=== PATIENT | male | born 1990 | race Caucasian/White ===

== ENCOUNTER 2021-09-01 08:24 | Outpatient (CLI) | payer MEDICAID, SELFPAY ==
--- NOTE | 2021-09-01 08:15 | RT.EKG_ITS ---
APPROVED REPORT Exam: Resting ECG Reason for Exam: high risk med Patient Location: O HR:109 bpm ECG Measurements Heart Rate 109 AXIS TX 141 P 55 QRSd 94 QRS 16 QT 329 T 31 QTc 443 Conclusion Sinus tachycardia...rate> 99 Normal Electrocardiogram
== END 2021-09-01 08:25 | disposition home or self-care (01) ==
LOC: RT 08:25
PROVIDERS: Visit Provider Family Medicine
DX: Z51.81 Encounter for therapeutic drug level monitoring (principal)
CPT/HCPCS: 93005; 93010

== ENCOUNTER 2024-05-25 09:12 | Outpatient (CLI) | payer MEDICAID, SELFPAY ==
--- NOTE | 2024-05-25 09:00 | RT.EKG_ITS ---
APPROVED REPORT Exam: Resting ECG Reason for Exam: HIGH RISK MEDICATION Patient Location: O HR:84 bpm ECG Measurements Heart Rate 84 AXIS NE 146 P 58 QRSd 83 QRS 41 QT 374 T 43 QTc 443 Conclusion Sinus rhythm...normal P axis, V-rate 50- 99 LVH by voltage...R >2.60mV in V5 or V6
== END 2024-05-25 09:13 | disposition home or self-care (01) ==
PROVIDERS: Visit Provider Family Medicine
DX: Z79.899 Other long term (current) drug therapy (principal)
CPT/HCPCS: 93005; 93010